=== PATIENT | male | born 1990 | race Caucasian/White ===

== ENCOUNTER 2025-02-08 13:00 | Outpatient (RCR) | payer OTHER, SELFPAY ==
--- NOTE | 2025-01-20 07:17 | HP.OTEVAL ---
Patient's Visit Information Visit Information Visit Information: MARYANN GOLDEN is a 34 year old M, referred to Occupational Therapy by NATALIE Renee, with a diagnosis of right distal radius fx. Date of Evaluation: 01/19/25 Occupational Therapist: Светлана Pope, DONALD/Tuan, CHT Subjective Subjective: This 34-year-old male was seen for OT eval with dx of right distal radius fx. pt states DOI was on December 02, 2024, due to [place] [employer] [place]. 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 Pt would like to return to his PLOF. 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 with ADLs by d/c Goal:: pt will demo a increase in right wrist flex/ext by 15* or greater to return pt to his PLOF. pt will demo a increase in right forearm pronation by 15* or greater to increase pt ind. with ADLs by d.c Rehabilitation General Assessment: pt demo a decrease in right wrist and forearm ROM and weakness of dominate UE limiting pts IND with ADLs and IADls. pt would benefit from skilled OT services 1-2x week for 4 weeks to return pt to PLOF. Today therapist ed. pt on dx and recovery- AAROM and will initiate strengthening in 1 week as long as pt has no increase edema or pain. Pt demo understanding and agree to POC. Rehabilitation Potential: Good Anticipated Interventions Anticipated Interventions: A/AAROM/PROM, Strengthening, Triggerpoint Release, Modalities, Joint Protection/Energy Conservation, Ergonomic Education, Education re assistive Equipment and Home Program Visit Plan Frequency: 1-2x /Week Duration: 4 Weeks TEXT: Thank you for the opportunity to evaluate your patient. For Medicare and Medicare HMO plans, please review the plan of care and approve it. It will need to be FAXED BACK to us at [phone] for Medicare purposes. Please let me know if there are questions or concerns regarding this plan of care. Physician Signature: Date:
--- NOTE | 2025-02-08 13:30 | HP.OTDCSUM_ITS ---
Discharge Summary D/C Summary: It has been my pleasure to treat MARYANN GOLDEN under orders from NATALIE Renee, for the diagnosis of right distal radius fx for a total of 4 visit(s). Please see the following information for a summary of their discharge status. Overall Improvement % Improvement: 90 Objective Objective/Function: right wrist ROM 65/60 right forearm pronation 70* right forearm supination WNL right collections agent strength 80# right lateral pinch 24# right tripod pinch 20# pt demo gains towards his OT goals and is now D/C with HEP. pt will cont with forearm pronation stretching to cont. to improve this ROM. Goals Goal:: pt will demo a increase in right collections agent strength to 80# to increase pts ind. with ADLs by d/c (goal met) Goal:: pt will demo a increase in right wrist flex/ext by 15* or greater to return pt to his PLOF. (goal met) pt will demo a increase in right forearm pronation by 15* or greater to increase pt ind. with ADLs by d.c (progressing) Plan Plan: pt d/c having met OT goals D/C Information Discharge Comments: pt progressed well in OT. he demo with a decrease in forearm pronation but will cont. with HEP to stretch this end rang- all other goals have been met- pt agrees for D/C. d/c sentence: If there are questions or concerns regarding this patient's occupational therapy, please fell free to call me at [phone]. Thank you for the referral of this patient. Sincerely, Светлана Pope, OTR/L, CHT
== END 2025-02-08 19:00 | disposition home or self-care (01) ==
LOC: OT 13:00
PROVIDERS: Referring Provider Nurse Practitioner Family; Visit Provider Nurse Practitioner Family
DX: S52.571D Other intraarticular fracture of lower end of right radius, subsequent encounter for closed fracture with routine healing (principal)
CPT/HCPCS: 97110; 97166; 97530